=== PATIENT | male | born 1955 | race African-American/Black ===

== ENCOUNTER → 2017-04-09 | Outpatient (CLI) | payer OTHER ==
[~2017-04-09] MED LIST: BACTRIM DS 8001 TA1 PO; BP PILL; CIPRO500 MG PO; COLCHICINE0.6 M1 PO; DAYPRO600 M1 PO; HYDROCODONE BIT1 T11 PO; IBUPROFEN600 MG PO; KEFLEX500 MG PO; LISINOPRIL HCTZ1 TA1 PO; MOTRIN800 MG PO; NAPROSYN500 MG PO; NEXIUM40 MG PO; PERCOCET 325 MG1 TA7 PO; PERI-COLACE 501 TAB PO; PHARMASSURE FO0.4 MG PO; SEPTRA DS 800 M1 TAB PO; SIMVASTATIN40 MG PO; VICODIN 500 MG-1 TAB PO; VITAMIN B-11 TAB PO; VITAMIN D32000 IU PO; VITAMIN D50000 IU PO; VITAMIN E PO; Vibra-Tab100 MG PO
[2017-04-09 17:22] LABS: BASO % 0.1 % (0.0-1.0); EOS % 0.3 % (1.0-4.0); HEMATOCRIT 38.7 % (42.0-52.0); HEMOGLOBIN 12.7 g/dl (14.0-18.0); LYMPH # 2.7 10*3/uL (1.3-4.4); MEAN CELL VOLUME 88.4 fl (80.0-94.0); MEAN CORPUSCULAR HGB CONC 32.8 g/dl (33.0-37.0); MONO # 0.5 10*3/uL (0.1-1.0); MONO % 7.3 % (3.0-9.0); NEUT # 3.5 10*3/uL (2.3-7.9); NEUT % 52.2 % (47.0-73.0); PLATELET COUNT AUTOMATED 224 10*3/uL (130-400); RED BLOOD COUNT 4.38 10*6/uL (4.50-5.90); RED CELL DISTRI WIDTH 13.8 % (0-14.5); WHITE BLOOD COUNT 6.7 10*3/uL (4.8-10.8)
[2017-04-09 17:39] LABS: ALBUMIN 3.7 gm/dl (3.1-4.5); ALKALINE PHOSPHATASE 64 U/L (45-117); BUN 16 mg/dl (7-24); CHLORIDE 105 mmol/L (98-107); CHOLESTEROL 211 mg/dL (<200); CREATININE 1.04 mg/dL (0.70-1.30); FREE T4 0.83 ng/dl (0.76-1.46); HDL CHOLESTEROL 113 mg/dl (40-60); LDL CHOLESTEROL 83 mg/dL (9-159); POTASSIUM 3.4 mmol/L (3.5-5.1); SGOT/AST 23 IU/L (3-35); SGPT/ALT 24 U/L (12-78); SODIUM 139 mmol/L (136-145); TOTAL PROTEIN 7.3 gm/dL (6.4-8.2); TRIGLYCERIDES 74 mg/dl (<150); VLDL CHOLESTEROL 15 mg/dL (6-40)
== END | disposition home or self-care (01) ==
LOC: LAB 02:14
PROVIDERS: Internal Medicine
DX: I10 Essential (primary) hypertension (principal); E55.9 Vitamin D deficiency, unspecified; E78.5 Hyperlipidemia, unspecified

== ENCOUNTER 2017-09-29 07:04 | Inpatient (IN) | payer OTHER ==
[~2017-09-29] VITALS: Ht 167.6 cm; Wt 83.7 kg
[2017-09-29] VITALS (12 sets, daily range): BP systolic 127–146; BP diastolic 69–90
[~2017-09-29 07:04] MED LIST changes: -LISINOPRIL HCTZ1 TA1 PO; +LISINOPRIL-HCT1 EACH PO; -VITAMIN D32000 IU PO; +VITAMIN D32000 UNIT PO
[2017-09-29 07:37] LABS: BASO % 0.2 % (0.0-1.0); EOS % 0.3 % (1.0-4.0); HEMATOCRIT 41.3 % (42.0-52.0); HEMOGLOBIN 13.3 g/dl (14.0-18.0); LYMPH % 27.7 % (27.0-41.0); MEAN CELL VOLUME 88.8 fl (80.0-94.0); MEAN CORPUSCULAR HGB 28.6 pg (27.0-31.0); MEAN CORPUSCULAR HGB CONC 32.2 g/dl (33.0-37.0); MEAN PLATELET VOLUME 9.1 fl (9.6-12.3); MONO # 0.5 10*3/uL (0.1-1.0); MONO % 4.7 % (3.0-9.0); NEUT # 7.2 10*3/uL (2.3-7.9); NEUT % 66.8 % (47.0-73.0); PLATELET COUNT AUTOMATED 253 10*3/uL (130-400); RED BLOOD COUNT 4.65 10*6/uL (4.50-5.90); RED CELL DISTRI WIDTH 13.3 % (0-14.5); WHITE BLOOD COUNT 10.7 10*3/uL (4.8-10.8)
[2017-09-29 07:52] LABS: ACT PARTIAL THROMBO TIME 22.5 SECONDS (20.8-31.5); INTERNATIONAL NORM RATIO 0.9 (2.0-3.5)
[2017-09-29 07:55] LABS: LIPASE 121 U/L (73-393)
[2017-09-29 07:57] LABS: ALBUMIN 3.9 gm/dl (3.1-4.5); ALKALINE PHOSPHATASE 60 U/L (45-117); BUN 19 mg/dl (7-24); CHLORIDE 102 mmol/L (98-107); POTASSIUM 3.1 mmol/L (3.5-5.1); SGOT/AST 25 IU/L (3-35); SGPT/ALT 22 U/L (12-78); SODIUM 134 mmol/L (136-145); TOTAL PROTEIN 7.5 gm/dL (6.4-8.2)
[2017-09-29 08:01] LABS: TROPONIN I < 0.015 ng/ml (<0.045)
[2017-09-29 09:28] LABS: ABG BASE EXCESS -4.3 mmol/L (-2.0-2.0); ABG HCO3 20.4 mmol/l (22-26); ARTERIAL BLOOD GAS PCO2 37.5 mmHg (35-45); ARTERIAL BLOOD GAS PH 7.352 (7.35-7.45)
[2017-09-30] VITALS: BP 140/74
[2017-09-30 07:24] LABS: BASO % 0.3 % (0.0-1.0); EOS # 0.1 10*3/uL (0.0-0.4); EOS % 0.9 % (1.0-4.0); HEMATOCRIT 37.1 % (42.0-52.0); LYMPH % 35.7 % (27.0-41.0); MEAN CELL VOLUME 89.2 fl (80.0-94.0); MEAN CORPUSCULAR HGB 28.8 pg (27.0-31.0); MEAN CORPUSCULAR HGB CONC 32.3 g/dl (33.0-37.0); MEAN PLATELET VOLUME 8.9 fl (9.6-12.3); MONO # 0.5 10*3/uL (0.1-1.0); MONO % 8.7 % (3.0-9.0); NEUT # 3.1 10*3/uL (2.3-7.9); NEUT % 54.1 % (47.0-73.0); PLATELET COUNT AUTOMATED 209 10*3/uL (130-400); RED BLOOD COUNT 4.16 10*6/uL (4.50-5.90); RED CELL DISTRI WIDTH 13.5 % (0-14.5); WHITE BLOOD COUNT 5.7 10*3/uL (4.8-10.8)
[2017-09-30 07:33] LABS: BUN 11 mg/dl (7-24); CHLORIDE 106 mmol/L (98-107); SODIUM 140 mmol/L (136-145)
[2017-09-30 07:45] LABS: CHOLESTEROL 160 mg/dL (<200); CREATININE 0.93 mg/dL (0.70-1.30); HDL CHOLESTEROL 97 mg/dl (40-60); LDL CHOLESTEROL 51 mg/dL (9-159); PHOSPHOROUS 2.1 mg/dL (2.5-4.9); THYROID STIM HORMONE (HS) 0.746 uIU/ml (0.358-4.75); TRIGLYCERIDES 62 mg/dl (<150); VLDL CHOLESTEROL 12 mg/dL (6-40)
[2017-09-30 07:48] LABS: POTASSIUM 4.1 mmol/L (3.5-5.1)
[2017-09-30 08:00] VITALS: BP 148/87
[2017-09-30 08:26] LABS: VITAMIN D, 25-HYDROXY 30.7 ng/mL (30-100)
[2017-09-30 12:00] VITALS: BP 169/90
== END 2017-09-30 14:50 | disposition home or self-care (01) | DRG 281 ==
LOC: ED 07:04 → EDHOLD 10:23 → 4E 10:23
PROVIDERS: Emergency Medicine; Student in an Organized Health Care Education/Training Program
PROC: 4A02XM4 Measurement of Cardiac Total Activity, External Approach (ICD-10-PCS; principal; 2017-09-30)
DX: I21.9 Acute myocardial infarction, unspecified (principal); E87.2 Acidosis; E83.39 Other disorders of phosphorus metabolism; E87.1 Hypo-osmolality and hyponatremia; R55 Syncope and collapse; R07.9 Chest pain, unspecified; E87.6 Hypokalemia; D18.03 Hemangioma of intra-abdominal structures; R10.9 Unspecified abdominal pain; I10 Essential (primary) hypertension; E78.5 Hyperlipidemia, unspecified; E55.9 Vitamin D deficiency, unspecified; F41.9 Anxiety disorder, unspecified; D64.9 Anemia, unspecified; Z72.0 Tobacco use; Z78.9 Other specified health status; Z82.49 Family history of ischemic heart disease and other diseases of the circulatory system

== ENCOUNTER 2017-11-14 13:44 | Emergency (ER) | payer OTHER ==
[~2017-11-14] VITALS: Ht 167.6 cm; Wt 84.8 kg
[2017-11-14 14:13] LABS: BASO % 0.1 % (0.0-1.0); EOS % 0.3 % (1.0-4.0); HEMATOCRIT 39.7 % (42.0-52.0); HEMOGLOBIN 12.7 g/dl (14.0-18.0); LYMPH # 1.8 10*3/uL (1.3-4.4); LYMPH % 20.3 % (27.0-41.0); MEAN CELL VOLUME 89.4 fl (80.0-94.0); MEAN CORPUSCULAR HGB 28.6 pg (27.0-31.0); MEAN PLATELET VOLUME 9.3 fl (9.6-12.3); MONO # 0.7 10*3/uL (0.1-1.0); MONO % 7.8 % (3.0-9.0); NEUT # 6.2 10*3/uL (2.3-7.9); NEUT % 71.4 % (47.0-73.0); PLATELET COUNT AUTOMATED 281 10*3/uL (130-400); RED BLOOD COUNT 4.44 10*6/uL (4.50-5.90); RED CELL DISTRI WIDTH 13.4 % (0-14.5); WHITE BLOOD COUNT 8.7 10*3/uL (4.8-10.8)
[2017-11-14 14:29] LABS: BUN 18 mg/dl (7-24); CHLORIDE 106 mmol/L (98-107); CREATININE 1.17 mg/dL (0.70-1.30); POTASSIUM 3.9 mmol/L (3.5-5.1); SODIUM 144 mmol/L (136-145)
[2017-11-14] MEDS ORDERED: CEPHALEXIN500 M1 PO (15:34)
[2017-11-14] MEDS ORDERED: NAPROSYN500 MG PO (15:34)
== END 2017-11-14 15:52 | disposition home or self-care (01) ==
LOC: ED 13:44
PROVIDERS: Emergency Medicine
DX: K11.20 Sialoadenitis, unspecified (principal); I10 Essential (primary) hypertension; F41.9 Anxiety disorder, unspecified; E78.5 Hyperlipidemia, unspecified; Z79.899 Other long term (current) drug therapy

== ENCOUNTER → 2018-08-18 | Outpatient (CLI) | payer OTHER ==
[~2018-08-18] MED LIST changes: +CEPHALEXIN500 M1 PO
== END | disposition home or self-care (01) ==
LOC: US 10:00
DX: Z72.0 Tobacco use (principal)

== ENCOUNTER → 2019-02-01 | Outpatient (CLI) | payer OTHER | END | disposition home or self-care (01) | LOC: RAD 11:26 | DX: M17.12 Unilateral primary osteoarthritis, left knee (principal) ==

== ENCOUNTER 2019-08-28 11:40 | Emergency (ER) | payer OTHER ==
[~2019-08-28] VITALS: Ht 167.6 cm; Wt 82.6 kg
[2019-08-28] MEDS ORDERED: CEPHALEXIN500 M1 PO (12:13)
== END 2019-08-28 13:15 | disposition home or self-care (01) ==
LOC: ED 11:40
DX: S60.456A Superficial foreign body of right little finger, initial encounter (principal); L03.011 Cellulitis of right finger; I10 Essential (primary) hypertension; I25.2 Old myocardial infarction; E78.00 Pure hypercholesterolemia, unspecified; K21.9 Gastro-esophageal reflux disease without esophagitis; Z79.2 Long term (current) use of antibiotics; Z79.899 Other long term (current) drug therapy; X58.XXXA Exposure to other specified factors, initial encounter; Y93.89 Activity, other specified; Y92.89 Other specified places as the place of occurrence of the external cause; Y99.8 Other external cause status

== ENCOUNTER 2019-09-05 22:45 | Emergency (ER) | payer OTHER ==
[~2019-09-05] VITALS: Ht 167.6 cm; Wt 80.7 kg
[2019-09-06] MEDS ORDERED: MEDROL DOSEPAK4 MG PO (01:05)
== END 2019-09-06 01:23 | disposition home or self-care (01) ==
LOC: ED 22:45
DX: K13.0 Diseases of lips (principal); I25.2 Old myocardial infarction; I10 Essential (primary) hypertension; E78.00 Pure hypercholesterolemia, unspecified; K21.9 Gastro-esophageal reflux disease without esophagitis; Z79.899 Other long term (current) drug therapy; Z87.891 Personal history of nicotine dependence

== ENCOUNTER → 2020-01-20 | Outpatient (CLI) | payer OTHER ==
[~2020-01-20] MED LIST changes: +MEDROL DOSEPAK4 MG PO
[2020-01-20 16:07] LABS: BASO % 0.3 % (0.0-1.0); EOS # 0.1 10*3/uL (0.0-0.4); EOS % 1.2 % (1.0-4.0); LYMPH # 2.1 10*3/uL (1.3-4.4); LYMPH % 34.8 % (27.0-41.0); MEAN CELL VOLUME 88.8 fl (80.0-94.0); MEAN CORPUSCULAR HGB 28.3 pg (27.0-31.0); MEAN CORPUSCULAR HGB CONC 31.8 g/dl (33.0-37.0); MEAN PLATELET VOLUME 9.1 fl (9.6-12.3); MONO # 0.6 10*3/uL (0.1-1.0); MONO % 9.5 % (3.0-9.0); NEUT # 3.2 10*3/uL (2.3-7.9); NEUT % 53.9 % (47.0-73.0); PLATELET COUNT AUTOMATED 240 10*3/uL (130-400); RED BLOOD COUNT 4.28 10*6/uL (4.50-5.90); RED CELL DISTRI WIDTH 12.8 % (0-14.5); WHITE BLOOD COUNT 5.9 10*3/uL (4.8-10.8)
[2020-01-20 16:36] LABS: BUN 15 mg/dl (7-24); CHLORIDE 104 mmol/L (98-107); CREATININE 1.12 mg/dL (0.70-1.30); POTASSIUM 3.5 mmol/L (3.5-5.1); SODIUM 136 mmol/L (136-145)
[2020-01-20 16:58] LABS: BACTERIA TRACE; BILIRUBIN NEGATIVE (NEGATIVE); BLOOD NEGATIVE (NEGATIVE); CLARITY CLEAR (CLEAR); COLOR YELLOW (YELLOW); GLUCOSE NEGATIVE (NEGATIVE); KETONE NEGATIVE (NEGATIVE); LEUKO ESTERASE NEGATIVE (NEGATIVE); NITRITE NEGATIVE (NEGATIVE); SPECIFIC GRAVITY 1.005 (1.005-1.030); UROBILINOGEN 0.2 E.U./dl (0.2-1.0); WBC 0-2 wbc/hpf (0-5)
== END | disposition home or self-care (01) ==
LOC: LAB 14:27 → US 14:30
PROVIDERS: Internal Medicine
DX: N20.0 Calculus of kidney (principal); I10 Essential (primary) hypertension

== ENCOUNTER → 2020-05-23 | Outpatient (CLI) | payer OTHER | END | disposition home or self-care (01) | LOC: RAD 15:12 | PROVIDERS: ATTEND Internal Medicine | DX: M47.26 Other spondylosis with radiculopathy, lumbar region (principal); M47.27 Other spondylosis with radiculopathy, lumbosacral region; M25.642 Stiffness of left hand, not elsewhere classified; R20.0 Anesthesia of skin; M25.462 Effusion, left knee ==

== ENCOUNTER → 2021-08-30 | Outpatient (CLI) | payer OTHER | END | disposition home or self-care (01) | LOC: ORTHO 01:50 | PROVIDERS: ATTEND Orthopaedic Surgery | DX: M17.12 Unilateral primary osteoarthritis, left knee (principal) ==

== ENCOUNTER 2021-12-10 19:02 | Emergency (ER) | payer OTHER ==
[~2021-12-10] VITALS: Ht 165.1 cm; Wt 84.4 kg
[2021-12-10] MEDS ORDERED: SEPTDS PO (19:58)
== END 2021-12-10 20:02 | disposition home or self-care (01) ==
LOC: ED 19:02
DX: L03.115 Cellulitis of right lower limb (principal); Z79.899 Other long term (current) drug therapy

== ENCOUNTER 2021-12-12 15:12 | Inpatient (IN) | payer OTHER ==
[~2021-12-12] VITALS: Ht 167.6 cm; Wt 85.0 kg
[~2021-12-12 15:12] MED LIST changes: +SEPTDS PO
[2021-12-12 15:16] VITALS: BP 142/84
[2021-12-12 17:39] LABS: BASO % 0.2 % (0.0-1.0); EOS % 0.4 % (1.0-4.0); HEMATOCRIT 40.2 % (42.0-52.0); LYMPH # 1.7 10*3/uL (1.3-4.4); LYMPH % 16.4 % (27.0-41.0); MEAN CELL VOLUME 89.1 fl (80.0-94.0); MEAN CORPUSCULAR HGB 28.8 pg (27.0-31.0); MEAN CORPUSCULAR HGB CONC 32.3 g/dl (33.0-37.0); MONO # 0.9 10*3/uL (0.1-1.0); MONO % 8.9 % (3.0-9.0); NEUT # 7.8 10*3/uL (2.3-7.9); NEUT % 73.8 % (47.0-73.0); PLATELET COUNT AUTOMATED 239 10*3/uL (130-400); RED BLOOD COUNT 4.51 10*6/uL (4.50-5.90); RED CELL DISTRI WIDTH 12.9 % (0-14.5); WHITE BLOOD COUNT 10.5 10*3/uL (4.8-10.8)
[2021-12-12 17:50] LABS: ACT PARTIAL THROMBO TIME 34.1 SECONDS (20.0-32.1)
[2021-12-12 17:58] LABS: ALKALINE PHOSPHATASE 68 U/L (45-117); BUN 14 mg/dl (7-24); CHLORIDE 101 mmol/L (98-107); CREATININE 1.15 mg/dL (0.70-1.30); SGOT/AST 17 IU/L (3-35); SGPT/ALT 19 U/L (12-78); SODIUM 136 mmol/L (136-145); TOTAL PROTEIN 7.1 gm/dL (6.4-8.2)
[2021-12-12 20:30] VITALS: BP 138/76
[2021-12-12] MEDS ORDERED: VITAMIN C1000 M5 PO (20:55)
[2021-12-12] MEDS ORDERED: ZINC50 M3 PO (20:55)
[2021-12-13] VITALS: BP 128/59
[2021-12-13 08:00] VITALS: BP 132/90
[2021-12-13 12:00] VITALS: BP 130/62
[2021-12-13 16:00] VITALS: BP 128/78
[2021-12-13 20:00] VITALS: BP 132/73
[2021-12-14] VITALS: BP 143/90
[2021-12-14 04:00] VITALS: BP 142/92
[2021-12-14 08:00] VITALS: BP 144/90
[2021-12-14 12:00] VITALS: BP 129/77
[2021-12-14 16:00] VITALS: BP 125/87
[2021-12-14 20:00] VITALS: BP 131/75
[2021-12-15] VITALS: BP 133/78
[2021-12-15 04:00] VITALS: BP 107/68
[2021-12-15 08:00] VITALS: BP 136/94
[2021-12-15] MEDS ORDERED: CEFUROXIME AXE500 MG PO (10:03)
== END 2021-12-15 14:00 | disposition home or self-care (01) | DRG 603 ==
LOC: ED 15:12 → EDHOLD 18:25 → 4E 18:25
PROVIDERS: Emergency Medicine; ADMIT Internal Medicine; ATTEND Internal Medicine
PROC: 0Y9H0ZZ Drainage of Right Lower Leg, Open Approach (ICD-10-PCS; principal; 2021-12-13)
DX: L03.115 Cellulitis of right lower limb (principal); D18.03 Hemangioma of intra-abdominal structures; L02.415 Cutaneous abscess of right lower limb; E78.5 Hyperlipidemia, unspecified; I10 Essential (primary) hypertension; E55.9 Vitamin D deficiency, unspecified; F17.200 Nicotine dependence, unspecified, uncomplicated; Z71.6 Tobacco abuse counseling; Z79.899 Other long term (current) drug therapy; Z82.49 Family history of ischemic heart disease and other diseases of the circulatory system

== ENCOUNTER 2022-02-18 13:01 | Emergency (ER) | payer OTHER ==
[~2022-02-18 13:01] MED LIST changes: +CEFUROXIME AXE500 MG PO; +VITAMIN C1000 M5 PO; +ZINC50 M3 PO
[2022-02-18 14:27] LABS: BASO % 0.3 % (0.0-1.0); EOS % 0.2 % (1.0-4.0); HEMATOCRIT 37.6 % (42.0-52.0); LYMPH # 1.2 10*3/uL (1.3-4.4); LYMPH % 18.3 % (27.0-41.0); MEAN CELL VOLUME 86.2 fl (80.0-94.0); MEAN CORPUSCULAR HGB 28.4 pg (27.0-31.0); MEAN PLATELET VOLUME 8.7 fl (9.6-12.3); MONO # 0.3 10*3/uL (0.1-1.0); MONO % 4.1 % (3.0-9.0); NEUT # 5.1 10*3/uL (2.3-7.9); NEUT % 76.9 % (47.0-73.0); PLATELET COUNT AUTOMATED 222 10*3/uL (130-400); RED BLOOD COUNT 4.36 10*6/uL (4.50-5.90); RED CELL DISTRI WIDTH 13.8 % (0-14.5); WHITE BLOOD COUNT 6.6 10*3/uL (4.8-10.8)
[2022-02-18 14:42] LABS: ALKALINE PHOSPHATASE 64 U/L (45-117); BUN 10 mg/dl (7-24); CHLORIDE 105 mmol/L (98-107); CREATININE 1.04 mg/dL (0.70-1.30); LIPASE 171 U/L (73-393); POTASSIUM 3.4 mmol/L (3.5-5.1); SGOT/AST 21 IU/L (3-35); SGPT/ALT 21 U/L (12-78); SODIUM 137 mmol/L (136-145); TOTAL PROTEIN 6.6 gm/dL (6.4-8.2)
[2022-02-18 14:47] LABS: BILIRUBIN Negative (Negative); BLOOD Negative (Negative); CLARITY Clear (Clear); COLOR Yellow (Yellow); GLUCOSE Negative (Negative); KETONE Negative (Negative); LEUKO ESTERASE Negative (Negative); NITRITE Negative (Negative); SPECIFIC GRAVITY 1.015 (1.001-1.030)
[2022-02-18 15:07] LABS: EPITHELIAL CELLS 0-2; WBC 0-2 wbc/hpf (0-5)
== END 2022-02-18 18:24 | disposition home or self-care (01) ==
LOC: ED 13:01
PROVIDERS: Emergency Medicine
DX: E86.0 Dehydration (principal); Z79.899 Other long term (current) drug therapy

== ENCOUNTER 2022-06-22 06:21 | Emergency (ER) | payer OTHER ==
[~2022-06-22] VITALS: Ht 167.6 cm; Wt 87.1 kg
[2022-06-22] MEDS ORDERED: Percocet 325 MG1 TAB PO (07:38)
[2022-06-22] MEDS ORDERED: LIDODERM1 EACH T (07:38)
[2022-06-22] MEDS ORDERED: ONDANSETRON4 MG SL (07:39)
== END 2022-06-22 07:53 | disposition home or self-care (01) ==
LOC: ED 06:21
DX: S29.9XXA Unspecified injury of thorax, initial encounter (principal); Z79.899 Other long term (current) drug therapy; W22.8XXA Striking against or struck by other objects, initial encounter; Y93.89 Activity, other specified; Y92.89 Other specified places as the place of occurrence of the external cause; Y99.8 Other external cause status

== ENCOUNTER 2022-09-14 16:58 | Emergency (ER) | payer OTHER ==
[~2022-09-14] VITALS: Wt 87.1 kg
[~2022-09-14 16:58] MED LIST changes: +LIDODERM1 EACH T; +ONDANSETRON4 MG SL; +Percocet 325 MG1 TAB PO
[2022-09-14] MEDS ORDERED: PREDNISONE20 M1 PO (20:07)
[2022-09-14] MEDS ORDERED: HYDR25T PO (20:07)
[2022-09-14] MEDS ORDERED: CEPHALEXIN500 M1 PO (20:07)
== END 2022-09-14 20:39 | disposition home or self-care (01) ==
LOC: ED 16:58
DX: T78.3XXA Angioneurotic edema, initial encounter (principal); I10 Essential (primary) hypertension; Z98.890 Other specified postprocedural states; Z72.0 Tobacco use

== ENCOUNTER → 2023-05-11 | Day surgery (SDC) | payer OTHER ==
[~2023-05-11] VITALS: Ht 167.6 cm; Wt 82.1 kg
[~2023-05-11] MED LIST changes: +HYDR25T PO; +PREDNISONE20 M1 PO
[2023-05-11 06:57] VITALS: BP 134/72
[2023-05-11 07:58] VITALS: BP 140/64
[2023-05-11 08:13] VITALS: BP 138/70
[2023-05-11 08:28] VITALS: BP 152/79
== END | disposition home or self-care (01) ==
LOC: SDC 04-23 08:45
PROVIDERS: ATTEND Surgery
DX: Z12.11 Encounter for screening for malignant neoplasm of colon (principal); D12.3 Benign neoplasm of transverse colon; I10 Essential (primary) hypertension; E78.00 Pure hypercholesterolemia, unspecified

== ENCOUNTER → 2023-05-29 | Outpatient (CLI) | payer OTHER ==
[2023-05-29 11:48] LABS: BUN 6 mg/dl (9-23); CHLORIDE 108 mmol/L (98-107); POTASSIUM 3.6 mmol/L (3.4-5.1)
== END | disposition home or self-care (01) ==
LOC: LAB 11:06
PROVIDERS: ATTEND Internal Medicine
DX: U07.1 COVID-19 (principal)

== ENCOUNTER → 2023-06-19 | Outpatient (CLI) | payer OTHER | END | disposition home or self-care (01) | LOC: RAD 17:22 | PROVIDERS: ATTEND Internal Medicine | DX: M19.042 Primary osteoarthritis, left hand (principal); M19.032 Primary osteoarthritis, left wrist ==

== ENCOUNTER 2024-09-14 20:53 | Emergency (ER) | payer OTHER ==
[~2024-09-14] VITALS: Ht 165.1 cm; Wt 82.1 kg
[2024-09-14] MEDS ORDERED: Amoxicillin/Clavulanate Pota 875 MG TAB PO ONE (21:45)
[2024-09-14] MEDS ORDERED: AMOX-CLAV 875-1 EACH PO (21:47)
== END 2024-09-15 00:39 | disposition home or self-care (01) ==
LOC: ED 20:53
DX: R22.1 Localized swelling, mass and lump, neck (principal); I25.2 Old myocardial infarction; I10 Essential (primary) hypertension; R13.10 Dysphagia, unspecified; E78.00 Pure hypercholesterolemia, unspecified; K21.9 Gastro-esophageal reflux disease without esophagitis; Z72.0 Tobacco use; J02.9 Acute pharyngitis, unspecified; Z98.890 Other specified postprocedural states